=== PATIENT | female | born 1965 | race Caucasian/White ===

== ENCOUNTER 2017-12-03 13:55 | Outpatient (REF) | payer BC, SELFPAY ==
--- NOTE | 2017-12-03 13:30 | PAPFT_PTH ---
PATIENT: Clarissa Dunn LOC: N U#:[id number] AGE/SX: 52/F ROOM: RE12/03/[address]: SHEA Plascencia : 1965 BED: DIS: 12/03/2017 SPEC #: [id number] RECD: 12/03/17 18:20 STATUS: DIANA REQ #: [id number] GILBERTO: 12/03/17 13:[address]: Virginia Chavez DEPT: [facility] Cytology RECD BY: Lisa Flores ENTERED: 12/03/17 18:20 SP TYPE: PAPFT OTHR DR: Ralf Tran Tissues: 1 - CX/ENDOCX FOR PAP SMEARS Procedures: PAP THIN PREP/UVM Screening HPV DNA PROBE Comments: [id number]
== END 2017-12-03 14:15 ==
LOC: LBN 13:55
PROVIDERS: PCP Internal Medicine; Visit Provider Nurse Practitioner Family
DX: Z12.4 Encounter for screening for malignant neoplasm of cervix (principal); Z11.51 Encounter for screening for human papillomavirus (HPV)
CPT/HCPCS: 88142; 87624

== ENCOUNTER 2018-01-26 09:07 | Emergency (ER) | payer BC, SELFPAY ==
[2018-01-26 09:13] VITALS: BP 110/71; PULSE 70; RESP 14; TEMP 36.6; O2SAT 100
[2018-01-26 09:38] LABS: Bilirubin Negative (Negative); Blood Small (Negative); Glucose Negative (Negative); Ketones Negative (Negative); Leukocyte Esterase Small (Negative); Nitrite Positive (Negative); Specific Gravity 1.015 (1.005-1.025); Urobilinogen 0.2 EU/dL (Up TO 0.2); pH 7.5 (5-8)
[2018-01-26 09:39] LABS: Clarity Sl Cloudy
[2018-01-26 09:52] LABS: Bacteria Few HPF (Negative); Crystals Moderate Amorphous HPF (Negative); Epithelial Cells Many HPF (Negative); Mucus Moderate (Negative); WBC >50 HPF (0-5)
[2018-01-26 09:53] LABS: C & S Indicated? No/Sq. Contamination; Casts Negative LPF (Negative)
--- NOTE | 2018-01-26 09:56 | W.ED.GENAD ---
Discharge Plan Disposition Patient Disposition: HOME Condition: Fair Discharge Details Chief Complaint: Urinary Clinical Impression: UTI (urinary tract infection) Primary Care Provider: Ralf Tran ED Provider: Mariama Dukes Home Meds and New Rx's Prescriptions: New cephalexin [Keflex] 500 mg capsule 500 mg PO BID Qty: 10 RF: 0 Continue ascorbic acid (vitamin C) [Vitamin C] 500 MG tablet 500 mg PO DAILY RF: 0 cod liver oil 120 ML oil 15 ml PO DAILY RF: 0 Discharge Instructions Instructions: Urinary Tract Infection in Women (ED) Additional Instructions: Encourage hydration. Take antibiotics as prescribed. Even if symptoms improve completely the entire course. Please follow-up with primary care if your symptoms completely resolved over the next week. If you develop back pain, fever/chills, or other new/worsening symptoms please seek care urgently once again. Referrals: Ralf Tran MD [Primary Care Provider] - Discharge Data Discharge Date/Time-TO BE ENTERED AT DEPARTURE: 01/26/18 10:13 Medical Decision Making Patient 33-year-old female, presenting today with chief complaint of a urinary tract infection. She reports that symptoms began approximately 1 week ago but really escalated over the past 48 hours. She is endorsing dysuria, increased frequency and urgency. She denies any flank pain. No CVA tenderness on exam. Denies any hematuria. Denies any abdominal pain. Denies any nausea or vomiting but does report that her appetite has been well. She reports she has had multiple urinary tract infections historically. Was last treated 1 month ago with Bactrim by her primary care provider. States that prior to that had been approximately a year since her last infection. Patient appears nontoxic, sitting comfortably. She has been taking [id number] Azo which she reports has been helping with symptomatic management. Vital signs within normal limits. Urinalysis significant for positive nitrites. Does appear contaminated. However, given the positive nitrates and the patient's symptoms, I feel the treatment at this point is appropriate. I have asked the patient to obtain another clean catch and attempt to able to culture this. Patient will be placed on Keflex. We discussed new/worsening symptoms when to seek care urgently once again. All the questions and concerns were addressed and she is in agreement this plan. HPI General Mode of arrival: ambulatory. Date/Time Provider Initiated Documentation: 01/26/18 09:45. Limitations to Documentation: no limitations. Information obtained by: patient. History of Present Illness 53 year old F presents to the emergency department with the chief complaint of UTI, described as moderate, with intensity rated at 7. Quality is described as aching, and is localized to the abdomen (low, central abdomen. Associates with bladder discomfort). Patient reports no radiation; denies radiation to back, extremity and flank. Patient started experiencing this day(s) (2) and it has been constant. Medication improves symptom(s), (Azo) No exacerbating factors reported . Patient notes loss of appetite; denies chest pain, cough, fever/chills, malaise, nausea/vomiting, rash and shortness of breath. Patient did receive the following treatments prior to arrival, none Related Data Home Medications Medication Instructions Recorded Confirmed ascorbic acid (vitamin C) [Vitamin 500 mg PO DAILY 02/12/17 01/26/18 C] cod liver oil 15 ml PO DAILY 02/12/17 01/26/18 cephalexin [Keflex] 500 mg PO BID #10 cap 01/26/18 Previous Rx's Medication Instructions Recorded cephalexin [Keflex] 500 mg PO BID #10 cap 01/26/18 Allergies Allergy/AdvReac Type Severity Reaction Status Date / Time No Known Allergies Allergy Verified 01/26/18 09:17 General Stated Complaint: Urinary ZE: 3 Review of Systems Constitutional Reports as per HPI, Denies chills, Denies fever(s) and Denies headache(s) ENT Denies headache(s) Cardiovascular Denies chest pain and Denies dyspnea Respiratory Denies cough and Denies dyspnea Gastrointestinal Reports as per HPI, Denies abdominal pain, Denies change in stool character, Denies nausea and Denies vomiting Genitourinary Reports as per HPI, Reports urinary frequency, Reports dysuria, Denies flank pain, Denies urinary incontinence, Denies urinary hesitancy, Reports urinary urgency, Denies vaginal discharge and Denies vaginal pruritus Musculoskeletal Denies back pain Integumentary/Breasts Reports as per HPI, Denies non-healing lesions, Denies erythema and Denies rash Neurologic Denies headache(s) PFSH Family History Father Diabetes Mother CAD (coronary artery disease) Social History Smoking/Tobacco Use Status: Never Female Reproductive History Menstrual control method: other (Vasectomy) Date of menopause: 11/18/17 Exam Const General: cooperative, healthy appearing, comfortable, no acute distress, well developed and well groomed Nutritional Appearance: average body habitus and well nourished Orientation: alert and awake Resp Effort & Inspection: normal respiratory effort, able to speak in complete sentences and no respiratory distress Auscultation: clear to auscultation bilaterally, no rales, no rhonchi and no wheezes Cardio Rate: regular rate Rhythm: regular rhythm Heart Sounds: S1 normal and S2 normal GI Inspection: normal to inspection Palpation: soft, not firm, no guarding and nontender Back/Spine/Pelvis Back: no CVA tenderness Skin General skin exam: no rashes or lesions noted Neuro General: alert and awake Cognition: normal cognition Speech: speech normal Gait: normal gait Psych Appearance: grossly normal and well kempt Mental Status: mental status grossly normal Speech and Movement: speech and movement normal Course Vital Signs Temperature 36.6 C 01/26/18 09:13 Pulse 70 01/26/18 09:13 Respiratory Rate 14 01/26/18 09:13 Blood Pressure 110/71 01/26/18 09:13 Pulse Oximetry 100 01/26/18 09:13 Temperature 36.6 C 01/26/18 09:13 Temperature Source Skin 01/26/18 09:13 Pulse 70 01/26/18 09:13 Respiratory Rate 14 01/26/18 09:13 Respiratory Effort 01/26/18 09:18 Blood Pressure 110/71 01/26/18 09:13 Blood Pressure Position Sitting 01/26/18 09:13 Pulse Oximetry 100 01/26/18 09:13 Oxygen Delivery Method Room Air 01/26/18 09:13 Oxygen Flow Rate 0 01/26/18 09:13 Pain Level 7 01/26/18 09:19 Lab/Test Results Lab/Test Results: Laboratory Tests Range/Units 01/26/18 09:25 Urine Color (Yellow) Yellow Urine Clarity Sl cloudy Urine pH (5-8) 7.5 Ur Specific [place] (1.005-1.025) 1.015 Urine Protein (Negative) mg/dL Negative Urine Ketones (Negative) mg/dL Negative Urine Blood (Negative) Small H Urine Nitrite (Negative) Positive H Urine Bilirubin (Negative) Negative Urine Urobilinogen (Up TO 0.2) EU/dL 0.2 Ur Leukocyte Esterase (Negative) Small H Urine RBC (0-2) 10-20 H Urine WBC (0-5) HPF >50 Ur Epithelial Cells (Negative) HPF Many Urine Crystals (Negative) HPF Moderate amorphous Urine Bacteria (Negative) HPF Few Urine Casts (Negative) LPF Negative Urine Mucus (Negative) Moderate Ur Culture Indicated? No/sq. contamination Urine Glucose (Negative) mg/dL Negative POC- Test(urine) Negative
--- NOTE | 2018-01-26 10:05 | ED.GENADUL_ITS ---
Discharge Plan Disposition Patient Disposition: HOME Condition: Fair Discharge Details Chief Complaint: Urinary Clinical Impression: UTI (urinary tract infection) Primary Care Provider: Ralf Tran ED Provider: Mariama Dukes Home Meds and New Rx's Prescriptions: New cephalexin [Keflex] 500 mg capsule 500 mg PO BID Qty: 10 RF: 0 Continue ascorbic acid (vitamin C) [Vitamin C] 500 MG tablet 500 mg PO DAILY RF: 0 cod liver oil 120 ML oil 15 ml PO DAILY RF: 0 Discharge Instructions Instructions: Urinary Tract Infection in Women (ED) Additional Instructions: Encourage hydration. Take antibiotics as prescribed. Even if symptoms improve completely the entire course. Please follow-up with primary care if your symptoms completely resolved over the next week. If you develop back pain, fever/chills, or other new/worsening symptoms please seek care urgently once again. Referrals: Ralf Tran MD [Primary Care Provider] - Discharge Data Discharge Date/Time-TO BE ENTERED AT DEPARTURE: 01/26/18 10:13 Medical Decision Making Patient 33-year-old female, presenting today with chief complaint of a urinary tract infection. She reports that symptoms began approximately 1 week ago but really escalated over the past 48 hours. She is endorsing dysuria, increased frequency and urgency. She denies any flank pain. No CVA tenderness on exam. Denies any hematuria. Denies any abdominal pain. Denies any nausea or vomiting but does report that her appetite has been well. She reports she has had multiple urinary tract infections historically. Was last treated 1 month ago with Bactrim by her primary care provider. States that prior to that had been approximately a year since her last infection. Patient appears nontoxic, sitting comfortably. She has been taking [id number] Azo which she reports has been helping with symptomatic management. Vital signs within normal limits. Urinalysis significant for positive nitrites. Does appear contaminated. However, given the positive nitrates and the patient's symptoms, I feel the treatment at this point is appropriate. I have asked the patient to obtain another clean catch and attempt to able to culture this. Patient will be placed on Keflex. We discussed new/worsening symptoms when to seek care urgently once again. All the questions and concerns were addressed and she is in agreement this plan. HPI General Mode of arrival: ambulatory . Date/Time Provider Initiated Documentation: 01/26/18 09:45 . Limitations to Documentation: no limitations . Information obtained by: patient . History of Present Illness 53 year old F presents to the emergency department with the chief complaint of UTI, described as moderate, with intensity rated at 7. Quality is described as aching, and is localized to the abdomen (low, central abdomen. Associates with bladder discomfort). Patient reports no radiation; denies radiation to back, extremity and flank. Patient started experiencing this day( s) (2) and it has been constant. Medication improves symptom(s), (Azo) No exacerbating factors reported . Patient notes loss of appetite; denies chest pain, cough, fever/chills, malaise, nausea/vomiting, rash and shortness of breath. Patient did receive the following treatments prior to arrival, none Related Data Home Medications Medication Instructions Recorded Confirmed ascorbic acid (vitamin C) [Vitamin 500 mg PO DAILY 02/12/17 01/26/18 C] cod liver oil 15 ml PO DAILY 02/12/17 01/26/18 cephalexin [Keflex] 500 mg PO BID #10 cap 01/26/18 Previous Rx's Medication Instructions Recorded cephalexin [Keflex] 500 mg PO BID #10 cap 01/26/18 Allergies Allergy/AdvReac Type Severity Reaction Status Date / Time No Known Allergies Allergy Verified 01/26/18 09:17 General Stated Complaint: Urinary ZE: 3 Review of Systems Constitutional Reports as per HPI, Denies chills, Denies fever(s) and Denies headache(s) ENT Denies headache(s) Cardiovascular Denies chest pain and Denies dyspnea Respiratory Denies cough and Denies dyspnea Gastrointestinal Reports as per HPI, Denies abdominal pain, Denies change in stool character, Denies nausea and Denies vomiting Genitourinary Reports as per HPI, Reports urinary frequency, Reports dysuria, Denies flank pain, Denies urinary incontinence, Denies urinary hesitancy, Reports urinary urgency, Denies vaginal discharge and Denies vaginal pruritus Musculoskeletal Denies back pain Integumentary/Breasts Reports as per HPI, Denies non-healing lesions, Denies erythema and Denies rash Neurologic Denies headache(s) PFSH Family History Father Diabetes Mother CAD (coronary artery disease) Social History Smoking/Tobacco Use Status: Never Female Reproductive History Menstrual control method: other (Vasectomy) Date of menopause: 11/18/17 Exam Const General: cooperative, healthy appearing, comfortable, no acute distress, well developed and well groomed Nutritional Appearance: average body habitus and well nourished Orientation: alert and awake Resp Effort & Inspection: normal respiratory effort, able to speak in complete sentences and no respiratory distress Auscultation: clear to auscultation bilaterally, no rales, no rhonchi and no wheezes Cardio Rate: regular rate Rhythm: regular rhythm Heart Sounds: S1 normal and S2 normal GI Inspection: normal to inspection Palpation: soft, not firm, no guarding and nontender Back/Spine/Pelvis Back: no CVA tenderness Skin General skin exam: no rashes or lesions noted Neuro General: alert and awake Cognition: normal cognition Speech: speech normal Gait: normal gait Psych Appearance: grossly normal and well kempt Mental Status: mental status grossly normal Speech and Movement: speech and movement normal Course Vital Signs Temperature 36.6 C 01/26/18 09:13 Pulse 70 01/26/18 09:13 Respiratory Rate 14 01/26/18 09:13 Blood Pressure 110/71 01/26/18 09:13 Pulse Oximetry 100 01/26/18 09:13 Temperature 36.6 C 01/26/18 09:13 Temperature Source Skin 01/26/18 09:13 Pulse 70 01/26/18 09:13 Respiratory Rate 14 01/26/18 09:13 Respiratory Effort 01/26/18 09:18 Blood Pressure 110/71 01/26/18 09:13 Blood Pressure Position Sitting 01/26/18 09:13 Pulse Oximetry 100 01/26/18 09:13 Oxygen Delivery Method Room Air 01/26/18 09:13 Oxygen Flow Rate 0 01/26/18 09:13 Pain Level 7 01/26/18 09:19 Lab/Test Results Lab/Test Results: Laboratory Tests Range/Units 01/26/18 09:25 Urine Color (Yellow) Yellow Urine Clarity Sl cloudy Urine pH (5-8) 7.5 Ur Specific [place] (1.005-1.025) 1.015 Urine Protein (Negative) mg/dL Negative Urine Ketones (Negative) mg/dL Negative Urine Blood (Negative) Small H Urine Nitrite (Negative) Positive H Urine Bilirubin (Negative) Negative Urine Urobilinogen (Up TO 0.2) EU/dL 0.2 Ur Leukocyte Esterase (Negative) Small H Urine RBC (0-2) 10-20 H Urine WBC (0-5) HPF >50 Ur Epithelial Cells (Negative) HPF Many Urine Crystals (Negative) HPF Moderate amorphous Urine Bacteria (Negative) HPF Few Urine Casts (Negative) LPF Negative Urine Mucus (Negative) Moderate Ur Culture Indicated? No/sq. contamination Urine Glucose (Negative) mg/dL Negative POC- Test(urine) Negative
== END 2018-01-26 10:13 | disposition home or self-care (01) ==
PROVIDERS: Emergency Provider Physician Assistant; PCP Internal Medicine
DX: N39.0 Urinary tract infection, site not specified (principal); B96.89 Other specified bacterial agents as the cause of diseases classified elsewhere; Z87.440 Personal history of urinary (tract) infections
CPT/HCPCS: 81025; 99283; 81003; 81015; 87086

== ENCOUNTER 2018-01-31 14:27 | Outpatient (REF) | payer BC, SELFPAY | END 2018-01-31 14:47 | LOC: NCHCN 14:27 | PROVIDERS: PCP Internal Medicine; Visit Provider Nurse Practitioner Family | DX: N39.0 Urinary tract infection, site not specified (principal) | CPT/HCPCS: 87086 ==

== ENCOUNTER 2018-03-26 16:30 | Emergency (ER) | payer BC, SELFPAY ==
[2018-03-26 16:36] VITALS: BP 140/79; PULSE 68; RESP 16; TEMP 36.7; O2SAT 100
[2018-03-26 17:03] LABS: Bilirubin Negative (Negative); Blood Small (Negative); Clarity Sl Cloudy; Glucose Negative (Negative); Ketones Negative (Negative); Leukocyte Esterase Moderate (Negative); Nitrite Positive (Negative); Specific Gravity 1.015 (1.005-1.025); Urobilinogen 0.2 EU/dL (Up TO 0.2); pH 7.5 (5-8)
[2018-03-26 17:11] LABS: Bacteria Rare HPF (Negative); C & S Indicated? Yes; Casts Negative LPF (Negative); Crystals Negative HPF (Negative); Epithelial Cells Rare HPF (Negative); Mucus Negative (Negative); WBC >50 HPF (0-5)
--- NOTE | 2018-03-26 17:31 | ED.GENADUL_ITS ---
Discharge Plan Disposition Patient Disposition: HOME Condition: Fair Discharge Details Chief Complaint: Urinary Clinical Impression: UTI (urinary tract infection) Primary Care Provider: Ralf Tran ED Provider: Mariama Dukes Home Meds and New Rx's Prescriptions: New phenazopyridine [Pyridium] 100 mg tablet 100 mg PO TID PRN (Reason: pain) 0 Days Qty: 6 RF: 0 nitrofurantoin monohyd/m-cryst [Macrobid] 100 mg capsule 100 mg PO BID Qty: 10 RF: 0 Continued ascorbic acid (vitamin C) [Vitamin C] 500 MG tablet 500 mg PO DAILY RF: 0 cod liver oil 120 ML oil 15 ml PO DAILY RF: 0 Discontinued cephalexin [Keflex] 500 mg capsule 500 mg PO BID Qty: 10 RF: 0 Discharge Instructions Instructions: Urinary Tract Infection in Women (ED) Additional Instructions: Encourage hydration. Macrobid as prescribed, please finish entire course even if symptoms improve. Culture has been sent, we will call you if Macrobid does not cover appropriately. Pyridium as prescribed for symptomatic management. If you develop fevers/chills, flank pain or other new/worsening symptoms please seek care urgently once again. Please follow up with primary care next week if not improved. Referrals: Ralf Tran MD [Primary Care Provider] - Medical Decision Making Patient is a 53 year old female presenting todya with c/c of UTI. Endorses dysurea, increased frequency and urgency that began this morning. She has had a multitude of UTI in the past, last was in January 2018. At that time was initially treated with Keflex but states she was then switched to Bactrim. Prior to that it had been approximately one year prior. Secondary to contamination, no C&S was completed. Denies fevers/chills, no N/V/D. States she is currently menstruating, no vaginal discharge prior to this. Exam benign, VS WNL, afebrile. UA concerning for UTI with positive nitrites and positive leuks. Discussed findings with the patient. As patient has been treated with Bactrim recently, will avoid this. As her UTI seems uncomplicated at this time with no CVA tenderness or evidence of worsening infection, plan to treat with Macrobid. She will be prescribed Pyridium for symptomatic management. Encouraged hydration. Discussed new/worsening symptoms and when to seek care urgently once again for this. Advised f/u with PCP to discuss recurrence. We discussed prophylactic measurements. All of her questions and concerns were addressed, she is in agreement with this plan. HPI General Mode of arrival: ambulatory . Date/Time Provider Initiated Documentation: 03/26/18 16:46 . Limitations to Documentation: no limitations . Information obtained by: patient . History of Present Illness 53 year old F presents to the emergency department with the chief complaint of UTI, described as moderate, Quality is described as burning (with urination), Patient reports no radiation. Patient started experiencing this hour(s) and it has been constant. No relieving factors improve symptom(s), No exacerbating factors reported . Patient notes denies chest pain, cough, fever/chills, loss of appetite, nausea/vomiting and rash. Patient did receive the following treatments prior to arrival, none Related Data Home Medications Medication Instructions Recorded Confirmed ascorbic acid (vitamin C) [Vitamin 500 mg PO DAILY 02/12/17 01/26/18 C] cod liver oil 15 ml PO DAILY 02/12/17 01/26/18 nitrofurantoin monohyd/m-cryst 100 mg PO BID #10 cap 03/26/18 [Macrobid] phenazopyridine [Pyridium] 100 mg PO TID PRN 0 Days #6 tab 03/26/18 Previous Rx's Medication Instructions Recorded nitrofurantoin monohyd/m-cryst 100 mg PO BID #10 cap 03/26/18 [Macrobid] phenazopyridine [Pyridium] 100 mg PO TID PRN 0 Days #6 tab 03/26/18 Allergies Allergy/AdvReac Type Severity Reaction Status Date / Time No Known Allergies Allergy Verified 01/26/18 09:17 General Stated Complaint: Urinary ZE: 4 Review of Systems Constitutional Reports as per HPI, Denies chills, Denies fever(s) and Denies poor appetite Cardiovascular Reports as per HPI and Denies chest pain Respiratory Reports as per HPI and Denies cough Gastrointestinal Denies abdominal pain, Denies change in bowel habits, Denies nausea and Denies vomiting Genitourinary Reports as per HPI, Denies hematuria, Denies genital pruritis, Denies genital lesions, Reports dysuria, Denies flank pain, Reports urinary urgency, Denies vaginal discharge, Denies vaginal odor and Reports other (currently menstruating) Musculoskeletal Reports as per HPI and Denies back pain Integumentary/Breasts Reports as per HPI and Denies rash PFSH Family History Father Diabetes Mother CAD (coronary artery disease) Social History Smoking/Tobacco Use Status: Never Female Reproductive History Menstrual control method: other (Vasectomy) Date of menopause: 11/18/17 History History 3 Para Hx # Term Pregnancies 3 Multiple births Hx # Pregnancies Ectopic pregnancies AB induced Hx Number of Living Children AB spontaneous Exam Const General: cooperative, healthy appearing, comfortable, no acute distress, well developed and well groomed Nutritional Appearance: average body habitus and well nourished Orientation: alert and awake Resp Effort & Inspection: normal respiratory effort and no respiratory distress Auscultation: clear to auscultation bilaterally, no rales, no rhonchi and no wheezes Cardio Rate: regular rate Rhythm: regular rhythm Heart Sounds: S1 normal and S2 normal GI Inspection: normal to inspection Palpation: soft, no hepatosplenomegaly, not firm, no guarding, not rigid and nontender Back/Spine/Pelvis Back: no CVA tenderness Skin General skin exam: no rashes or lesions noted Trauma: no lacerations or abrasions Neuro General: alert and awake Cognition: normal cognition Speech: speech normal Gait: normal gait Psych Appearance: grossly normal and well kempt Mental Status: mental status grossly normal Speech and Movement: speech and movement normal Course Vital Signs Temperature 36.7 C 03/26/18 16:36 Pulse 68 03/26/18 16:36 Respiratory Rate 16 03/26/18 16:36 Blood Pressure 140/79 03/26/18 16:36 Pulse Oximetry 100 03/26/18 16:36 Temperature 36.7 C 03/26/18 16:36 Temperature Source Temporal Artery Scan 03/26/18 16:36 Pulse 68 03/26/18 16:36 Respiratory Rate 16 03/26/18 16:36 Respiratory Effort 03/26/18 16:39 Blood Pressure 140/79 03/26/18 16:36 Pulse Oximetry 100 03/26/18 16:36 Oxygen Delivery Method Room Air 03/26/18 16:36 Oxygen Flow Rate 0 03/26/18 16:36
== END 2018-03-26 17:30 | disposition home or self-care (01) ==
PROVIDERS: Emergency Provider Physician Assistant; PCP Internal Medicine
DX: N39.0 Urinary tract infection, site not specified (principal)
CPT/HCPCS: 99283; 81003; 81015; 87086

== ENCOUNTER 2018-03-28 14:48 | Outpatient (REF) | payer BC, SELFPAY | END 2018-03-28 15:08 | LOC: NCHCN 14:48 | PROVIDERS: PCP Internal Medicine; Visit Provider Internal Medicine | DX: N39.0 Urinary tract infection, site not specified (principal) | CPT/HCPCS: 87086 ==

== ENCOUNTER 2018-04-07 14:14 | Outpatient (REF) | payer BC, SELFPAY ==
[2018-04-08 14:24] LABS: Chlamydia Result Negative; GC Result Negative; Specimen Description CERVIX
== END 2018-04-07 14:34 ==
LOC: LBN 14:14
PROVIDERS: PCP Internal Medicine; Visit Provider Nurse Practitioner Family
DX: R35.0 Frequency of micturition (principal); Z11.3 Encounter for screening for infections with a predominantly sexual mode of transmission
CPT/HCPCS: 87491; 87591; 87086

== ENCOUNTER 2018-12-29 10:44 | Outpatient (CLI) | payer BC, SELFPAY | END 2018-12-29 11:04 | PROVIDERS: PCP Internal Medicine; Visit Provider Nurse Practitioner Gerontology | DX: R30.0 Dysuria (principal) | CPT/HCPCS: 87077; 87086; 87186 ==

== ENCOUNTER 2018-12-29 18:19 | Emergency (ER) | payer BC, SELFPAY ==
[2018-12-29 18:21] VITALS: BP 105/65; PULSE 66; RESP 14; TEMP 37; O2SAT 98
--- NOTE | 2018-12-29 18:32 | ED.GENADUL_ITS ---
Discharge Plan Disposition Patient Disposition: HOME Condition: Stable Discharge Details Chief Complaint: Urinary Clinical Impression: UTI (urinary tract infection) Primary Care Provider: Ralf Tran ED Provider: Jacob Ferrell Home Meds and New Rx's Prescriptions: New sulfamethoxazole-trimethoprim [Bactrim DS] 800-160 mg tablet 1 tab PO BID 7 Days Qty: 14 RF: 0 Continued phenazopyridine [Pyridium] 100 mg tablet 100 mg PO TID PRN (Reason: pain) Qty: 6 RF: 0 ascorbic acid (vitamin C) [Vitamin C] 500 MG tablet 500 mg PO DAILY RF: 0 cod liver oil 120 ML oil 15 ml PO DAILY RF: 0 Discharge Instructions Instructions: Urinary Tract Infection in Women (ED) Additional Instructions: Continue liberal amounts of fluids to maintain good hydration. May continue Pyridium as previously prescribed Take Bactrim as prescribed. Return if you develop back pain, fever, or any other acute concern. Medical Decision Making 53-year-old female with history of recurrent urinary tract infections presents with 3 days of urinary urgency and burning with urination. She did have an outpatient urine culture sent today but has yet to have urinalysis. She is afebrile and well-appearing. Her exam is without acute findings. Urinalysis obtained and consistent with acute cystitis. Will treat with Bactrim as has worked well for her in the past. She is stable and appropriate for outpatient management at this time. HPI General Mode of arrival: ambulatory . Date/Time Provider Initiated Documentation: 12/29/18 18:21 . Limitations to Documentation: no limitations . Information obtained by: patient . History of Present Illness 53 year old F presents to the emergency department with the chief complaint of UTI symptoms for 2 days, described as moderate and similar to prior episodes, Quality is described as constant, and is localized to the abdomen and pelvis. Patient reports no radiation. Patient started experiencing this day(s) and it has been constant. No relieving factors improve symptom(s), No exacerbating factors reported . Patient notes malaise; denies fever/chills and nausea/vomiting. Patient did receive the following treatments prior to arrival, other (Pyridium) Related Data Home Medications Medication Instructions Recorded Confirmed ascorbic acid (vitamin C) [Vitamin 500 mg PO DAILY 02/12/17 12/29/18 C] cod liver oil 15 ml PO DAILY 02/12/17 12/29/18 phenazopyridine 100 mg tablet 100 mg PO TID PRN #6 tab 12/29/18 12/29/18 sulfamethoxazole-trimethoprim 1 tab PO BID 7 Days #14 tab 12/29/18 [Bactrim DS] Previous Rx's Medication Instructions Recorded phenazopyridine 100 mg tablet 100 mg PO TID PRN #6 tab 12/29/18 sulfamethoxazole-trimethoprim 1 tab PO BID 7 Days #14 tab 12/29/18 [Bactrim DS] Allergies Allergy/AdvReac Type Severity Reaction Status Date / Time No Known Allergies Allergy Verified 12/29/18 18:27 General Stated Complaint: Urinary ZE: 4 Review of Systems Review of Systems Narrative: No vomiting. Normal p.o. intake. 6 systems reviewed and otherwise negative COUNT INCLUDES THE [facility] Medical History Dysuria (Acute) Family History (Updated 12/03/17 @ 12:27 by Virginia Chavez NP) Father Diabetes Mother CAD (coronary artery disease) Social History Smoking/Tobacco Use Status: Never Alcohol Intake: current Alcohol Intake frequency: a few times a month Drug use: Never Do you feel safe at home: Yes Do you feel safe in your relationship?: Yes Female Reproductive History Menstrual control method: other Date of menopause: 11/18/17 History History 3 Para Hx # Term Pregnancies 3 Multiple births Hx # Pregnancies Ectopic pregnancies AB induced Hx Number of Living Children AB spontaneous Exam Narrative Exam Narrative: GEN: awake, alert, oriented 3. Pleasant, well groomed, interactive. HEAD: Normocephalic, atraumatic EYES: PERRL, EOMI NECK: Full ROM, no VITA, no menigismus CHEST/RESP: Nontender, clear to auscultation bilateral, no wheeze/rhonchi/rales CARDIOVASCULAR: RRR, no murmur, rub eliud. 2+ Rad pulse bilateral ABDOMEN: Soft, nontender, no mass. +Bowel sounds EXT: Full ROM, no edema, no rash Neuro: Grossly normal neurologic exam, conversant, interactive. Psych: Speech fluent, thoughts congruent, affect normal Course Vital Signs Vital signs: Vital Signs Temperature 37.0 C 12/29/18 18:21 Pulse 66 12/29/18 18:21 Respiratory Rate 14 12/29/18 18:21 Blood Pressure 105/65 12/29/18 18:21 Pulse Oximetry 98 12/29/18 18:21 Temperature 37.0 C 12/29/18 18:21 Temperature Source Skin 12/29/18 18:21 Pulse 66 12/29/18 18:21 Respiratory Rate 14 12/29/18 18:21 Respiratory Effort 12/29/18 18:27 Blood Pressure 105/65 12/29/18 18:21 Blood Pressure Position Sitting 12/29/18 18:21 Pulse Oximetry 98 12/29/18 18:21 Oxygen Delivery Method Room Air 12/29/18 18:21 Oxygen Flow Rate 0 12/29/18 18:21 Pain Level 8 12/29/18 18:21
[2018-12-29 18:46] LABS: Bilirubin Negative (Negative); Blood Trace-intact (Negative); Clarity Clear (Clear); Glucose Negative (Negative); Ketones Negative (Negative); Leukocyte Esterase Small (Negative); Nitrite Negative (Negative); Urobilinogen 0.2 EU/dL (Up TO 0.2)
[2018-12-29 18:59] LABS: Bacteria Moderate HPF (Negative); C & S Indicated? C&S Done As Ordered; Casts Negative LPF (Negative); Crystals Negative HPF (Negative); Epithelial Cells Few HPF (Negative); Mucus Negative (Negative); Other Cells Negative (Negative)
[2018-12-29] MEDS: Sulfameth/Trimeth DS TAB 1 TAB PO (19:05)
== END 2018-12-29 19:06 | disposition home or self-care (01) ==
PROVIDERS: Emergency Provider Emergency Medicine; PCP Internal Medicine
DX: N39.0 Urinary tract infection, site not specified (principal); Z87.440 Personal history of urinary (tract) infections
CPT/HCPCS: 99283; 81003; 81015

== ENCOUNTER 2019-02-27 15:22 | Outpatient (REF) | payer BC, SELFPAY | END 2019-02-27 15:42 | LOC: NCHCN 15:22 | PROVIDERS: PCP Internal Medicine; Visit Provider Nurse Practitioner Family | DX: N39.0 Urinary tract infection, site not specified (principal); R30.0 Dysuria | CPT/HCPCS: 87077; 87086; 87186 ==

== ENCOUNTER 2019-08-06 19:23 | Outpatient (REF) | payer BC, SELFPAY | END 2019-08-06 19:43 | LOC: NCHCN 19:23 | PROVIDERS: PCP Internal Medicine; Visit Provider Nurse Practitioner Family | DX: R30.0 Dysuria (principal) | CPT/HCPCS: 87086 ==

== ENCOUNTER 2020-01-25 18:13 | Emergency (ER) | payer BC, SELFPAY ==
[2020-01-25 18:17] VITALS: BP 102/62; PULSE 74; RESP 18; TEMP 36.4; O2SAT 99
[2020-01-25 18:29] LABS: Bilirubin Negative (Negative); Blood Small (Negative); Clarity Sl Cloudy (Clear); Glucose Negative (Negative); Ketones Negative (Negative); Leukocyte Esterase Small (Negative); Nitrite Negative (Negative); Specific Gravity >= 1.030 (1.005-1.025); Urobilinogen 0.2 EU/dL (Up TO 0.2); pH 6.5 (5-8)
--- NOTE | 2020-01-25 18:29 | ED.GENADUL_ITS ---
Discharge Plan Disposition Patient Disposition: HOME Condition: Stable Discharge Details Clinical Impression: Cystitis Primary Care Provider: Ralf Tran ED Provider: Toby Grande Home Meds and New Rx's Prescriptions: New sulfamethoxazole-trimethoprim [Bactrim DS] 800-160 mg tablet 1 tab PO BID Qty: 14 RF: 0 Continued phenazopyridine [Pyridium] 100 mg tablet 100 mg PO TID PRN (Reason: pain) Qty: 6 RF: 0 ascorbic acid (vitamin C) [Vitamin C] 500 MG tablet 500 mg PO DAILY RF: 0 cod liver oil 120 ML oil 15 ml PO DAILY RF: 0 zinc 50 mg Tablet 50 mg PO DAILY RF: 0 cholecalciferol (vitamin D3) [Vitamin D3] 50 mcg (2,000 unit) Capsule 1,200 unit PO DAILY RF: 0 Discharge Instructions Additional Instructions: if symptoms do not improve with the antibiotics follow up with your primary care provider if you develop severe pain, fevers or feel more ill return to the emergency department Medical Decision Making 55 yo female comes in with chief complaint of urgency and burning with urination for a day. No fevers, abdominal pain or flank pain. Appears well systemically, suspect cystitis, will obtain UA, has no cva tenderness. UA consistent with uti, will have her start bactrim and return precautions given Differential Diagnosis Differential Diagnosis: cystitis, interstitial nephritis Medical Records Medical records reviewed: Yes I reviewed the patient's medical records. HPI General Mode of arrival: ambulatory . Date/Time Provider Initiated Documentation: 01/25/20 18:21 . Limitations to Documentation: no limitations . Information obtained by: patient . History of Present Illness 55 year old F presents to the emergency department with the chief complaint of dysuria, described as moderate, Patient started experiencing this day(s) (1) and it h as been constant. No relieving factors improve symptom(s), No exacerbating factors reported . Related Data Home Medications Medication Instructions Recorded Confirmed ascorbic acid (vitamin C) [Vitamin 500 mg PO DAILY 02/12/17 01/25/20 C] cod liver oil 15 ml PO DAILY 02/12/17 01/25/20 phenazopyridine 100 mg tablet 100 mg PO TID PRN #6 tab 12/29/18 01/25/20 cholecalciferol (vitamin D3) 1,200 unit PO DAILY 01/25/20 01/25/20 [Vitamin D3] sulfamethoxazole-trimethoprim 1 tab PO BID #14 tab 01/25/20 [Bactrim DS] zinc 50 mg PO DAILY 01/25/20 01/25/20 Previous Rx's Medication Instructions Recorded phenazopyridine 100 mg tablet 100 mg PO TID PRN #6 tab 12/29/18 sulfamethoxazole-trimethoprim 1 tab PO BID #14 tab 01/25/20 [Bactrim DS] Allergies Allergy/AdvReac Type Severity Reaction Status Date / Time nitrofurantoin AdvReac Verified 03/02/19 14:13 [From Macrobid] General Stated Complaint: Urinary ZE: 4 Review of Systems All systems reviewed & are unremarkable except as noted in HPI and below Constitutional Constitutional: Denies chills, Denies fever(s) and Denies weakness Cardiovascular Cardiovascular: Denies chest pain and Denies dyspnea Respiratory Respiratory: Denies cough and Denies dyspnea Gastrointestinal Gastrointestinal: Denies abdominal pain, Denies nausea and Denies vomiting Neurologic Neurologic: Denies weakness PFS Medical History (Updated 01/25/20 @ 18:45 by Toby Grande MD) Dysuria Family History (Updated 12/03/17 @ 12:27 by Virginia Chavez NP) Father Diabetes Mother CAD (coronary artery disease) Social History Smoking/Tobacco Use Status: Never Smoking risk assessment performed?: Yes Alcohol Intake: current Alcohol Intake frequency: a few times a month Drug use: Never Substance use type: does not use Do you feel safe at home: Yes Do you feel safe in your relationship?: Yes Female Reproductive History Menstrual control method: other Date of menopause: 11/18/17 History History 3 Para Hx # Term Pregnancies 3 Multiple births Hx # Pregnancies Ectopic pregnancies AB induced Hx Number of Living Children AB spontaneous Exam Const General: no acute distress Orientation: alert HENMT Head: normal to inspection Ears: external ears normal General nose exam: external nose normal Mouth: moist mucous membranes Eyes General: appearance normal, both eyes and all related structures Neck Neck: normal visual inspection Resp Effort & Inspection: normal respiratory effort and able to speak in complete sentences Cardio Rate: regular rate Skin General skin exam: no rashes or lesions noted Neuro General: patient alert and patient oriented x3 Extrem General: normal to inspection Psych Mental Status: mental status grossly normal Course Vital Signs Vital signs: Vital Signs Temperature 36.4 C L 01/25/20 18:17 Pulse 74 01/25/20 18:17 Respiratory Rate 18 01/25/20 18:17 Blood Pressure 102/62 01/25/20 18:17 Pulse Oximetry 99 01/25/20 18:17 Temperature 36.4 C L 01/25/20 18:17 Temperature Source Skin 01/25/20 18:17 Pulse 74 01/25/20 18:17 Respiratory Rate 18 01/25/20 18:17 Blood Pressure 102/62 01/25/20 18:17 Blood Pressure Position Sitting 01/25/20 18:17 Pulse Oximetry 99 01/25/20 18:17 Oxygen Delivery Method Room Air 01/25/20 18:17 Oxygen Flow Rate 0 01/25/20 18:17 Pain Level 5 01/25/20 18:17
[2020-01-25 18:38] LABS: Bacteria Many HPF (Negative); C & S Indicated? Yes; Casts Negative LPF (Negative); Crystals Negative HPF (Negative); Epithelial Cells Few HPF (Negative); Mucus Negative (Negative); RBC 0-2 HPF (0-2); WBC 20-50 HPF (0-5)
== END 2020-01-25 18:51 | disposition home or self-care (01) ==
PROVIDERS: Physician Assistant; Emergency Provider Emergency Medicine; PCP Internal Medicine
DX: N30.00 Acute cystitis without hematuria (principal)
CPT/HCPCS: 99283; 81003; 81015; 87086

== ENCOUNTER 2020-04-24 10:49 | Emergency (ER) | payer BC, SELFPAY ==
[2020-04-24 11:07] VITALS: BP 129/77; PULSE 70; RESP 16; TEMP 36.5; O2SAT 100
[2020-04-24 11:11] LABS: Bilirubin Negative (Negative); Blood Negative (Negative); Clarity Clear (Clear); Glucose Negative (Negative); Ketones Negative (Negative); Leukocyte Esterase Trace (Negative); Nitrite Positive (Negative); Urobilinogen 0.2 EU/dL (Up TO 0.2)
--- NOTE | 2020-04-24 11:17 | ED.GENADUL_ITS ---
Discharge Plan Disposition Patient Disposition: HOME Condition: Stable Discharge Details Clinical Impression: UTI (urinary tract infection) Primary Care Provider: Ralf Tran ED Provider: Anitha Prajapati Home Meds and New Rx's Prescriptions: New cephalexin 500 mg tablet 500 mg PO BID 7 Days Qty: 14 RF: 0 No Action phenazopyridine [Pyridium] 100 mg tablet 100 mg PO TID PRN (Reason: pain) Qty: 6 RF: 0 ascorbic acid (vitamin C) [Vitamin C] 500 MG tablet 500 mg PO DAILY RF: 0 cod liver oil 120 ML oil 15 ml PO DAILY RF: 0 zinc 50 mg Tablet 50 mg PO DAILY RF: 0 cholecalciferol (vitamin D3) [Vitamin D3] 50 mcg (2,000 unit) Capsule 1,200 unit PO DAILY RF: 0 sulfamethoxazole-trimethoprim [Bactrim DS] 800-160 mg tablet 1 tab PO BID Qty: 14 RF: 0 Discharge Instructions Instructions: Urinary Tract Infection in Women (ED) Additional Instructions: Follow up with primary care provider in 3-5 days. Return to ED sooner if any worsening or concerns. Increase oral fluids. Please take Tylenol or Ibuprofen with food every 4-6 hours as needed for pain and swelling. Take antibiotic as prescribed. Return for any vomiting, worsening pain, fever or any concerns. Discharge Data Discharge Date/Time-TO BE ENTERED AT DEPARTURE: 04/24/20 11:30 Medical Decision Making 55-year-old female perimenopausal presents to the ED with chief complaint of urinary tract type symptoms. Reports dysuria began this morning. She had a recent UTI in January. Urinalysis is positive for nitrites, trace leukocytes, 10-20 WBCs, culture is pending at this time. We will give patient cephalexin 5 mg here in department and place patient on cephalexin 5 mg twice daily x7 days. She was given a 2-day take-home dose here in department as well. Discussed follow-up with PCP and return instructions, patient verbalized understanding. HPI General Mode of arrival: ambulatory . Date/Time Provider Initiated Documentation: 04/24/20 10:51 . Limitations to Documentation: no limitations . Information obtained by: patient . HPI Narrative: 54-year-old female presents the ER chief complaint of dysuria and suprapubic pelvic pain. This began this morning when she woke up. She does have a history of urinary tract infections last one was in January which she was treated for with Bactrim. Patient states that she took entire course of Bactrim. She does state that she is perimenopausal and has not had menstrual period in the last 2 months. She denies any vomiting, mild lower back pain when awakening which has resolved. Urine shows positive nitrites trace leukocytes. Related Data Home Medications Medication Instructions Recorded Confirmed ascorbic acid (vitamin C) [Vitamin 500 mg PO DAILY 02/12/17 01/25/20 C] cod liver oil 15 ml PO DAILY 02/12/17 01/25/20 phenazopyridine 100 mg tablet 100 mg PO TID PRN #6 tab 12/29/18 01/25/20 cholecalciferol (vitamin D3) 1,200 unit PO DAILY 01/25/20 01/25/20 [Vitamin D3] sulfamethoxazole-trimethoprim 1 tab PO BID #14 tab 01/25/20 [Bactrim DS] zinc 50 mg PO DAILY 01/25/20 01/25/20 cephalexin 500 mg PO BID 7 Days #14 tab 04/24/20 Previous Rx's Medication Instructions Recorded phenazopyridine 100 mg tablet 100 mg PO TID PRN #6 tab 12/29/18 sulfamethoxazole-trimethoprim 1 tab PO BID #14 tab 01/25/20 [Bactrim DS] cephalexin 500 mg PO BID 7 Days #14 tab 04/24/20 Allergies Allergy/AdvReac Type Severity Reaction Status Date / Time nitrofurantoin AdvReac Verified 03/02/19 14:13 [From Macrobid] General Stated Complaint: Urinary ZE: 4 PFSH Medical History (Updated 04/24/20 @ 11:20 by Anitha Prajapati) Dysuria Family History (Updated 12/03/17 @ 12:27 by Virginia Chavez NP) Father Diabetes Mother CAD (coronary artery disease) Social History Smoking/Tobacco Use Status: Never Smoking risk assessment performed?: Yes Alcohol Intake: current Alcohol Intake frequency: a few times a month Drug use: Never Substance use type: does not use Do you feel safe at home: Yes Do you feel safe in your relationship?: Yes Female Reproductive History Menstrual control method: other Date of menopause: 11/18/17 History History 3 Para Hx # Term Pregnancies 3 Multiple births Hx # Pregnancies Ectopic pregnancies AB induced Hx Number of Living Children AB spontaneous Exam Narrative Exam Narrative: Constitutional: Alert and oriented x3. Appears stated age. Normal body habitus. Head: Normocephalic, no trauma. Eyes: Pupils PERRLA, Red reflex noted, EOM's intact. Eyelids symmetrical without lesions, discharge, or swelling. ENT: Bilateral TM's WNL, External ear normal to inspection, no mastoid TTP, swelling, or erythema, Nasal turbinates WNL, no nasal discharge. Normal dentition, Posterior pharynx WNL, no exudate. Chest: RRR, Normal S1, S2, distal pulses intact. Resp: Lungs clear to auscultation bilaterally, no wheezes, rales, or rhonchi. Abdomen: Soft nontender to palpation. Musculoskeletal: Normal gait, 5/5 strength to all four extremities. Skin: No suspicious rashes or lesions. Capillary refill less than 2 sec. Neurologic: Cranial nerves II-XII intact. Alert and oriented x 3. DTR's intact. Hematologic/Lymphatic: No ecchymosis, no lymphadenopathy. Course Vital Signs Vital signs: Vital Signs Temperature 36.5 C 04/24/20 11:07 Pulse 70 04/24/20 11:07 Respiratory Rate 16 04/24/20 11:07 Blood Pressure 129/77 04/24/20 11:07 Pulse Oximetry 100 04/24/20 11:07 Temperature 36.5 C 04/24/20 11:07 Temperature Source Skin 04/24/20 11:07 Pulse 70 04/24/20 11:07 Respiratory Rate 16 04/24/20 11:07 Respiratory Effort Non-Labored 04/24/20 11:08 Blood Pressure 129/77 04/24/20 11:07 Blood Pressure Position Sitting 04/24/20 11:07 Pulse Oximetry 100 04/24/20 11:07 Oxygen Delivery Method Room Air 04/24/20 11:07 Oxygen Flow Rate 0 04/24/20 11:07 Pain Level 7 04/24/20 11:08 Lab/Test Results Lab/Test Results: Laboratory Tests Range/Units 04/24/20 11:05 Urine Color (Yellow) [place] Urine Clarity (Clear) Clear Urine pH (5-8) 7.0 Ur Specific [place] (1.005-1.025) 1.020 Urine Protein (Negative) mg/dL Negative Urine Ketones (Negative) mg/dL Negative Urine Blood (Negative) Negative Urine Nitrite (Negative) Positive H Urine Bilirubin (Negative) Negative Urine Urobilinogen (Up TO 0.2) EU/dL 0.2 Ur Leukocyte Esterase (Negative) Trace H Urine Glucose (Negative) mg/dL Negative
[2020-04-24 11:18] LABS: Bacteria Moderate HPF (Negative); C & S Indicated? Yes; Casts Negative LPF (Negative); Crystals Negative HPF (Negative); Epithelial Cells Few HPF (Negative); Mucus Trace (Negative); RBC 0-2 HPF (0-2)
[2020-04-24] MEDS: Cephalexin 500 MG CAP PO (11:25)
[2020-04-24] MEDS: Cephalexin 500 MG CAP, 4 CAPS/BTL PO (11:25)
== END 2020-04-24 11:30 | disposition home or self-care (01) ==
PROVIDERS: Emergency Provider Registered Nurse Emergency; PCP Internal Medicine
DX: N39.0 Urinary tract infection, site not specified (principal); B96.20 Unspecified Escherichia coli [E. coli] as the cause of diseases classified elsewhere; Z87.440 Personal history of urinary (tract) infections
CPT/HCPCS: 87077; 99283; 81003; 81015; 87086; 87186

== ENCOUNTER 2020-12-24 15:53 | Outpatient (REF) | payer BC, SELFPAY | END 2020-12-24 15:54 | disposition home or self-care (01) | LOC: LBN 15:53 | PROVIDERS: PCP Internal Medicine; Visit Provider Physician Assistant Medical | DX: R30.0 Dysuria (principal) | CPT/HCPCS: 87086 ==

== ENCOUNTER 2021-01-27 12:47 | Outpatient (REF) | payer BC, SELFPAY ==
[2021-01-29 22:16] LABS: COVID-19 RT-PCR UVMMC Result Positive (Negative)
== END 2021-01-27 12:48 | disposition home or self-care (01) ==
LOC: NCHCN 12:47
PROVIDERS: PCP Internal Medicine; Visit Provider Nurse Practitioner Family
DX: Z20.822 Contact with and (suspected) exposure to COVID-19 (principal)
CPT/HCPCS: U0003

== ENCOUNTER 2021-02-25 11:10 | Outpatient (REF) | payer BC, SELFPAY | END 2021-02-25 11:11 | disposition home or self-care (01) | LOC: LBN 11:10 | PROVIDERS: PCP Internal Medicine; Visit Provider Nurse Practitioner Family | DX: N39.0 Urinary tract infection, site not specified (principal) | CPT/HCPCS: 87086 ==

== ENCOUNTER 2021-03-06 21:13 | Outpatient (REF) | payer BC, SELFPAY ==
[2021-03-06 21:48] LABS: Bilirubin Negative (Negative); Blood Negative (Negative); Clarity Clear (Clear); Glucose Negative (Negative); Ketones Negative (Negative); Leukocyte Esterase Negative (Negative); Nitrite Negative (Negative); Specific Gravity >= 1.030 (1.005-1.025); Urobilinogen 0.2 EU/dL (Up TO 0.2); pH 6.5 (5-8)
== END 2021-03-06 21:14 | disposition home or self-care (01) ==
LOC: NCHCN 21:13
PROVIDERS: PCP Internal Medicine; Visit Provider Nurse Practitioner Family
DX: N39.0 Urinary tract infection, site not specified (principal)
CPT/HCPCS: 81003; 87086

== ENCOUNTER 2021-03-30 19:21 | Outpatient (REF) | payer BC, SELFPAY | END 2021-03-30 19:22 | disposition home or self-care (01) | LOC: NCHCN 19:21 | PROVIDERS: PCP Internal Medicine; Visit Provider Nurse Practitioner Family | DX: N39.0 Urinary tract infection, site not specified (principal) | CPT/HCPCS: 87077; 87086; 87186 ==

== ENCOUNTER 2022-01-19 16:55 | Outpatient (REF) | payer BC, SELFPAY ==
[2022-01-19 20:50] LABS: Bacteria Moderate HPF (Negative); C & S Indicated? C&S Done As Ordered; Casts Negative LPF (Negative); Crystals Negative HPF (Negative); Epithelial Cells Few HPF (Negative); Mucus Negative (Negative); RBC 0-2 HPF (0-2)
== END 2022-01-19 16:56 | disposition home or self-care (01) ==
LOC: LBN 16:55
PROVIDERS: PCP Internal Medicine; Visit Provider Physician Assistant Medical
DX: N39.0 Urinary tract infection, site not specified (principal)
CPT/HCPCS: 87077; 81015; 87086; 87186

== ENCOUNTER 2022-01-30 19:00 | Outpatient (REF) | payer BC, SELFPAY | END 2022-01-30 19:01 | disposition home or self-care (01) | LOC: LBN 19:00 | PROVIDERS: PCP Internal Medicine; Visit Provider Nurse Practitioner Family | DX: R30.0 Dysuria (principal) | CPT/HCPCS: 87086 ==

== ENCOUNTER 2022-11-27 23:45 | Outpatient (REF) | payer BC, SELFPAY | END 2022-11-27 23:46 | disposition home or self-care (01) | LOC: LBN 23:45 | PROVIDERS: PCP Internal Medicine; Visit Provider Nurse Practitioner Family | DX: N30.00 Acute cystitis without hematuria (principal) | CPT/HCPCS: 87086 ==

== ENCOUNTER 2023-01-14 14:23 | Outpatient (REF) | payer BC, SELFPAY | END 2023-01-14 14:24 | disposition home or self-care (01) | LOC: LBN 14:23 | PROVIDERS: PCP Internal Medicine; Visit Provider Nurse Practitioner Family | DX: N30.00 Acute cystitis without hematuria (principal) | CPT/HCPCS: 87077; 87086; 87186 ==

== ENCOUNTER 2023-01-18 16:48 | Outpatient (REF) | payer BC, SELFPAY ==
[2023-01-18 21:27] LABS: Bacteria Few HPF (Negative); Epithelial Cells Few HPF (Negative)
[2023-01-18 21:28] LABS: C & S Indicated? C&S Done As Ordered; Casts Negative LPF (Negative); Crystals Mod Calcium Oxalate HPF (Negative); Mucus Negative (Negative)
== END 2023-01-18 16:49 | disposition home or self-care (01) ==
LOC: LBN 16:48
PROVIDERS: PCP Internal Medicine; Visit Provider Physician Assistant Medical
DX: N30.00 Acute cystitis without hematuria (principal)
CPT/HCPCS: 81015; 87086

== ENCOUNTER 2023-02-06 21:38 | Outpatient (REF) | payer BC, SELFPAY ==
[2023-02-06 21:55] LABS: Epithelial Cells Rare HPF (Negative); Other Cells Rare Renal (Negative); RBC Negative HPF (0-2)
[2023-02-06 21:56] LABS: Bacteria Negative HPF (Negative); C & S Indicated? C&S Done As Ordered; Casts Negative LPF (Negative); Crystals Negative HPF (Negative); Mucus Negative (Negative)
== END 2023-02-06 21:39 | disposition home or self-care (01) ==
LOC: LBN 21:38
PROVIDERS: PCP Physician Assistant Medical; Visit Provider Physician Assistant Medical
DX: N39.0 Urinary tract infection, site not specified (principal)
CPT/HCPCS: 81015; 87086

== ENCOUNTER 2023-06-22 10:37 | Outpatient (REF) | payer BC, SELFPAY ==
[2023-06-22 17:30] LABS: Bacteria Many HPF (Negative); C & S Indicated? C&S Done As Ordered; Casts Negative LPF (Negative); Crystals Negative HPF (Negative); Epithelial Cells Few HPF (Negative); Mucus Negative (Negative); RBC 0-2 HPF (0-2)
== END 2023-06-22 10:38 | disposition home or self-care (01) ==
LOC: LBN 10:37
PROVIDERS: PCP Internal Medicine; Visit Provider Physician Assistant Medical
DX: R30.0 Dysuria (principal)
CPT/HCPCS: 87077; 81015; 87086; 87186

== ENCOUNTER 2023-11-10 16:34 | Emergency (ER) | payer BC, SELFPAY ==
--- NOTE | 2023-11-10 16:30 | RT.EKG_ITS ---
APPROVED REPORT Exam: Resting ECG Reason for Exam: palpitations Patient Location: E HR:81 bpm ECG Measurements Heart Rate 81 AXIS CA 140 P 77 QRSd 86 QRS 24 QT 381 T 69 QTc 428 Conclusion Sinus rhythm with PACs No STEMI Possible U wave best appreciated V3-V6
[2023-11-10 16:40] VITALS: BP 127/69; PULSE 74; RESP 15; TEMP 36.4
[2023-11-10 18:18] VITALS: BP 116/69; PULSE 71; RESP 20; O2SAT 97
[2023-11-10 18:59] LABS: Abs Immature Grans 0.02 10^3/uL (0.0-0.06); Absolute Basophil Count 0.03 10^3/uL (0.0-0.2); Absolute Eosinophil Count 0.12 10^3/uL (0.0-0.7); Absolute Lymphocyte Count 1.61 10^3/uL (1.2-3.4); Absolute Monocyte Count 0.56 10^3/uL (0.1-0.8); Absolute Neutrophil Count 3.96 10^3/uL (1.2-6.7); Basophils % 0.5 %; Eosinophils % 1.9 %; HCT 41.4 % (36.0-46.0); HGB 14.2 g/dL (11.2-15.7); Immature Grans % 0.3 %; Lymphocytes % 25.6 %; MCHC 34.3 % (32.0-36.0); MCV 93 fL (80-95); MPV 9.6 fL (8.0-11.0); Monocytes % 8.9 %; Neutrophils % 62.8 %; Platelet Count 203 10^3/uL (130-400); RBC 4.44 10^6/uL (3.93-5.22); RDW 11.9 % (11.7-14.6); RDW-SD 41.1 fL
[2023-11-10 19:24] LABS: ALT 50 U/L (14-59); AST 24 U/L (15-37); Albumin 4.2 g/dL (3.4-5.0); Alkaline Phosphatase 79 U/L (46-116); Anion Gap 7.4 mmol/L (3-11); BUN 17 mg/dL (7-18); Bilirubin, Total 0.39 mg/dL (0.2-1.0); CO2 30.6 mmol/L (21.0-32.0); CREATININE 1.2 mg/dL (0.55-1.02); Calcium 9.6 mg/dL (8.5-10.1); Chloride 106 mmol/L (98-107); Estimated GFR 53.13 (mL/min/1.73m2); Glucose 102 mg/dL (74-106); Magnesium 2.8 mg/dL (1.8-2.4); Potassium 3.6 mmol/L (3.5-5.1); Sodium 144 mmol/L (136-145); TSH (W/Ref FT4) 1.94 uIU/mL (0.36-3.74); Total Protein 7.3 g/dL (6.4-8.2); Troponin I < 50 ng/L (< or =60)
--- NOTE | 2023-11-10 20:17 | W.ED.GENAD ---
Discharge Plan Disposition Patient Disposition: Home Condition: Stable Discharge Details Clinical Impression: Intermittent palpitations Primary Care Provider: Ralf Tran ED Provider: Laureen Fulton Home Meds and New Rx's Prescriptions: No Action phenazopyridine [Pyridium] 100 mg tablet 100 mg PO TID PRN (Reason: pain) Qty: 6 0RF terconazole 0.4 % cream 1 appful vaginal DAILY Qty: 45 0RF Rx Instructions: Use one applicatorfull in vagina at bedtime for 7 days ascorbic acid (vitamin C) [Vitamin C] 500 MG tablet 500 mg PO DAILY cod liver oil 120 ML oil 15 ml PO DAILY zinc 50 mg Tablet 50 mg PO DAILY cholecalciferol (vitamin D3) [Vitamin D3] 50 mcg (2,000 unit) Capsule 1,200 unit PO DAILY Discharge Instructions Instructions: Palpitations (DC) Additional Instructions: You were seen in the emergency department today for evaluation of palpitations. In our department you had a full physical examination performed, had an EKG that showed occasional PACs, or premature atrial contractions, which can be caused by a number of different things. Your laboratory studies were reassuring, including your thyroid function level. We do not believe that it is necessary for you to supplement with additional iodide, but it is recommended that you follow-up with your primary care provider in the next few days to discuss this visit and any symptoms that change, worsen, or persist. Of course if you develop shortness of breath, chest pain, change in responsiveness, dizziness, or any other symptoms that cause you concern you should follow-up in the emergency department immediately. Thank you for allowing us to be part of your care. HPI General Mode of arrival: ambulatory. Date/Time Provider Initiated Documentation: 11/10/23 18:32. Limitations to Documentation: no limitations. Information obtained by: patient. HPI Narrative: MDM: In brief, this is a 58-year-old female patient presenting for evaluation of 3 days of palpitations. My differential includes but is not limited to arrhythmia, ectopy, certainly considered ACS though the patient is without chest pain. I considered medication and supplement effect, hyperthyroidism, toxic exposure, withdrawal syndromes. The patient endorses some anxiety, though this would be a diagnosis of exclusion. Will obtain laboratory studies to include CBC, CMP, TSH, troponin, and will obtain an EKG. ED Course: I independently interpreted the laboratory studies, which show no significant leukocytosis, anemia, or thrombocytopenia. The chemistry panel is without evidence of electrolyte abnormality, kidney dysfunction, or liver injury. The patient's magnesium is slightly high which is consistent with her supplementation. Her creatinine is 1.2, but no comorbid elevation in BUN to suggest prerenal DIANA. Troponin is negative and TSH is within normal limits. Independently interpreted the patient's EKG, which shows normal sinus rhythm with PACs. No STEMI or evidence of ischemia. I recommended to the patient that she stop her iodine supplements and follow-up with her primary care provider for repeat testing of her thyroid if she has ongoing concerns for thyroid disorders. She was advised to maintain good hydration and nutrition and avoid excessive caffeine and other stimulating substances. At this time, the patient has had a full medical evaluation and is safe for discharge to home. They are hemodynamically stable, ambulatory, and tolerating PO. They are understanding of the follow-up plan and return precautions. They left our facility without incident. Laureen Fulton MD HPI: This is a 58-year-old female patient without significant past medical history presenting for evaluation of 3 days of palpitations. The patient reports that she was worried that she had hypothyroidism, and so started supplementing with iodide drops. She also takes magnesium and vitamin C for supplementation. She reports that she noted that she would have a fluttering in her chest and could feel when her heartbeat was irregular. These were brief nonsustained episodes, and she has not identified any propagating or palliating factors. They are not associated with chest pain, shortness of breath, fever or chills, or other changes in her health. The patient states that she stopped the iodine and she has noted that the frequency of palpitations has decreased. She does not drink excessive caffeine, use preworkout, nicotine or other stimulating medications. She has never experienced symptoms like this in the past. Exam: Gen: Awake and alert, in no apparent distress HEENT: Non-icteric sclera Neck: Supple Lungs: No apparent respiratory distress, normal respiratory effort. Lung sounds clear and equal bilaterally, heart with regular rate and rhythm, CV: Appears well perfused, heart with regular rate and rhythm strong distal pulses Abdomen: Non-distended MSK: Moves 4 extremities without apparent limitation in ROM. No unilateral calf swelling or tenderness, no edema Skin: Visualized skin without rashes, cyanosis. Neuro: Normal Gait, no obvious focal deficits or facial asymmetry. Speaks in full, clear sentences. Psych: Appropriate for situation. Related Data Home Medications ?Medication ?Instructions ?Recorded ?Confirmed ascorbic acid (vitamin C) 500 mg 500 mg PO DAILY 02/12/17 11/10/23 tablet (Vitamin C) cod liver oil 15 ml PO DAILY 02/12/17 11/10/23 phenazopyridine 100 mg tablet 100 mg PO TID PRN pain 6 doses #6 12/29/18 11/10/23 (Pyridium) tabs cholecalciferol (vitamin D3) 50 1,200 unit PO DAILY 01/25/20 11/10/23 mcg (2,000 unit) capsule (Vitamin D3) zinc 50 mg tablet 50 mg PO DAILY 01/25/20 11/10/23 terconazole 0.4 % vaginal cream 1 appful vaginal DAILY #45 grams 06/03/20 11/10/23 Previous Rx's ?Medication ?Instructions ?Recorded phenazopyridine 100 mg tablet 100 mg PO TID PRN pain 6 doses #6 12/29/18 (Pyridium) tabs terconazole 0.4 % vaginal cream 1 appful vaginal DAILY #45 grams 06/03/20 Allergies Allergy/AdvReac Type Severity Reaction Status Date / Time ciprofloxacin (From Cipro) AdvReac Unknown Diarrhea Verified 11/10/23 19:00 nitrofurantoin (From AdvReac Dizziness/L Verified 11/10/23 19:00 Macrobid) ighthead General Stated Complaint: Palpitatns ZE: 3 Course Vital Signs Vital signs: Vital Signs Temperature 36.4 C 11/10/23 16:40 Pulse 74 11/10/23 16:40 Respiratory Rate 15 11/10/23 16:40 Blood Pressure 127/69 11/10/23 16:40 Temperature 36.4 C 11/10/23 16:40 Pulse 71 11/10/23 18:18 Respiratory Rate 20 11/10/23 18:18 Respiratory Effort Normal 11/10/23 16:43 Blood Pressure 116/69 11/10/23 18:18 Blood Pressure Position Sitting 11/10/23 16:40 Pulse Oximetry 97 11/10/23 18:18 Oxygen Delivery Method Room Air 11/10/23 18:18 Oxygen Flow Rate 0 11/10/23 18:18 Pain Level 0 11/10/23 16:40 Lab/Test Results Lab/Test Results: Laboratory Tests Range/Units 11/10/23 18:48 WBC (4.4-10.8) 10^3/uL 6.30 RBC (3.93-5.22) 10^6/uL 4.44 Hgb (11.2-15.7) g/dL 14.2 Hct (36.0-46.0) % 41.4 MCV (80-95) fL 93 MCH (27.0-33.0) pg 32.0 MCHC (32.0-36.0) % 34.3 RDW (11.7-14.6) % 11.9 Plt Count (130-400) 10^3/uL 203 MPV (8.0-11.0) fL 9.6 Immature Gran % % 0.3 Neutrophils % % 62.8 Lymphocytes % % 25.6 Monocytes % % 8.9 Eosinophils % % 1.9 Basophils % % 0.5 Nucleated RBC % (0.0-0.3) % 0.0 Absolute Neutrophils (1.2-6.7) 10^3/uL 3.96 Absolute Lymphocytes (1.2-3.4) 10^3/uL 1.61 Absolute Monocytes (0.1-0.8) 10^3/uL 0.56 Absolute Eosinophils (0.0-0.7) 10^3/uL 0.12 Absolute Basophils (0.0-0.2) 10^3/uL 0.03 Sodium (136-145) mmol/L 144 Potassium (3.5-5.1) mmol/L 3.6 Chloride (98-107) mmol/L 106 Carbon Dioxide (21.0-32.0) mmol/L 30.6 Anion Gap (3-11) mmol/L 7.4 BUN (7-18) mg/dL 17 Creatinine (0.55-1.02) mg/dL 1.2 H Est GFR (CKD-EPI 2020) (mL/min/1.73m2) 53.13 Glucose (74-106) mg/dL 102 Calcium (8.5-10.1) mg/dL 9.6 Magnesium (1.8-2.4) mg/dL 2.8 H Total Bilirubin (0.2-1.0) mg/dL 0.39 AST (15-37) U/L 24 ALT (14-59) U/L 50 Alkaline Phosphatase (46-116) U/L 79 Troponin I (< or =60) ng/L < 50 Total Protein (6.4-8.2) g/dL 7.3 Albumin (3.4-5.0) g/dL 4.2 TSH (0.36-3.74) uIU/mL 1.94 Medical Decision Making Quality:SDOH Health Related Social Needs: No Data to Display PFSH All Active Problems (Updated 11/10/23 @ 20:19 by Laureen Fulton MD) Intermittent palpitations (Acute) Dysuria (Acute) Family History (Updated 12/03/17 @ 12:27 by Virginia Chavez NP) Father Diabetes Mother CAD (coronary artery disease) Social History Smoking/Tobacco Use Status: Never Smoking risk assessment performed?: Yes Alcohol Intake: current Alcohol Intake frequency: a few times a month Drug use: Never Substance use type: does not use Do you feel safe at home: Yes Do you feel safe in your relationship?: Yes Female Reproductive History Menstrual control method: other Date of menopause: 11/18/17 History History 3 Para Hx # Term Pregnancies 3 Multiple births Hx # Pregnancies Ectopic pregnancies AB induced Hx Number of Living Children AB spontaneous
[2023-11-10 20:25] VITALS: BP 140/96; PULSE 66; RESP 12; O2SAT 99
--- NOTE | 2023-11-14 10:36 | NUR.NOTE ---
Access chart to reconcile EKG orders and EKG's in [facility]. Duplicate order cancelled. Nursing Note:
== END 2023-11-10 20:27 | disposition home or self-care (01) ==
PROVIDERS: Emergency Provider Emergency Medicine; PCP Internal Medicine
DX: R00.2 Palpitations (principal)
CPT/HCPCS: 80053; 93005; 99283; 83735; 84443; 84484; 85025; 93010; 99282